=== PATIENT | male | born 1935 | race Two or more races ===

== ENCOUNTER 2023-10-31 19:08 | Emergency (ER) | payer OTHER ==
[~2023-10-31] VITALS: Ht 177.8 cm; Wt 72.6 kg
[2023-10-31] MEDS ORDERED: BETAPACE80 MG PO (19:20)
[2023-10-31] MEDS ORDERED: MEMANTINE HCL10 MG PO (19:21)
[2023-10-31] MEDS ORDERED: RAZADYNE ER16 MG PO (19:21)
[2023-10-31] MEDS ORDERED: TENORMIN25 MG PO (19:21)
[2023-10-31] MEDS ORDERED: BUSPIRONE HCL5 MG PO (19:22)
[2023-10-31] MEDS ORDERED: TENORMIN25 MG (19:22)
[2023-10-31] MEDS ORDERED: TETANUS & DIPHTHERIA TOX,ADULT 0.5 ML VIAL IM ONE (19:45)
[2023-10-31] MEDS ORDERED: CEFTRIAXONE SODIUM 1,000 MG VIAL IV ONE (20:00)
== END 2023-10-31 22:07 | disposition home or self-care (01) ==
LOC: ER 19:08
DX: S01.02XA Laceration with foreign body of scalp, initial encounter (principal); W01.0XXA Fall on same level from slipping, tripping and stumbling without subsequent striking against object, initial encounter; Y93.89 Activity, other specified; Y92.018 Other place in single-family (private) house as the place of occurrence of the external cause; M19.90 Unspecified osteoarthritis, unspecified site; I10 Essential (primary) hypertension
CPT/HCPCS: 12002; 70450; 90471; 90714; 96365; 99284; J0696; J1670